=== PATIENT | female | born 1985 | race American Indian/Alaskan Native ===

== ENCOUNTER 2016-08-09 22:32 | Emergency (ER) | payer SELFPAY ==
[2016-08-09 23:55] VITALS: BP 149/82
[2016-08-10 02:48] LABS: Bacteria,Urine 4+ /HPF (Negative); Bilirubin,Urine NEG (Negative); Blood,Urine NEG (Negative); Ketones,Urine NEG (Negative); Leukocyte Esterase,Urine MOD (Negative); Mucus,Urine 3+ /HPF; Nitrite,Urine NEG (Negative); Protein,Urine <15 mg/dL mg/dL (Negative)
--- NOTE | 2016-08-10 19:28 | ED Elopement Review ---
ED Pt Elopement review - Results review Lab results: Laboratory Tests 08/10/16 Unknown Urine Color Yellow Urine Turbidity Cloudy Urine pH 6.0 Ur Specific [place] 1.027 Urine Protein <15 mg/dl Urine Glucose (UA) Neg Urine Ketones Neg Urine Blood Neg Urine Nitrite Neg Ur Reducing Substances Not Reportable Urine Bilirubin Neg Urine Ictotest Not Reportable Urine Urobilinogen 4.0 Ur Leukocyte Esterase Mod Urine WBC (Auto) 5.0 Urine RBC (Auto) 1.0 U Epithel Cells (Auto) < 1.0 Urine Bacteria (Auto) 4+ Urine Mucus 3+ Urine HCG, Qual Negative - Call Back decision Pt Call Back Decision: Pt to F/U with PMD (patient to follow up with primary care doctor for probable urinary tract infection)
== END 2016-08-10 01:00 | disposition left against medical advice (07) ==
LOC: ED 22:32
DX: M54.5 Low back pain (principal); Z53.21 Procedure and treatment not carried out due to patient leaving prior to being seen by health care provider
CPT/HCPCS: 81001; 81025